=== PATIENT | male | born 1960 | race Two or more races ===

== ENCOUNTER 2019-08-15 20:44 | Emergency (ER) | payer SELFPAY ==
[~2019-08-15] VITALS: Ht 162.6 cm; Wt 72.6 kg
[2019-08-16 05:15] VITALS: BP 135/76
== END 2019-08-16 05:40 | disposition home or self-care (01) ==
LOC: EDBD 20:44 → EDUNIT# 20:44 → ER 20:44
DX: M25.561 Pain in right knee (principal); F17.210 Nicotine dependence, cigarettes, uncomplicated; W19.XXXA Unspecified fall, initial encounter; Y93.89 Activity, other specified; Y99.8 Other external cause status; Y92.89 Other specified places as the place of occurrence of the external cause